=== PATIENT | female | born 1950 | race Caucasian/White ===

== ENCOUNTER 2023-02-13 12:40 | Emergency (ER) | payer OTHER ==
--- OUTSIDE RECORDS SUMMARY | 2023-02-13 12:45 | XMS REPORT | Continuity of Care Document ---
:1950 Author Organization [facility] t Address [address] [place] [address] [place] [id number] Care Team Providers Name Role Phone MARIE COOLEY Attending Clinician Unavailable NIRANJAN MORALES Attending Clinician Unavailable DR EMILY BRASHER Attending Clinician Unavailable DR EMILY BRASHER Admitting Clinician Unavailable Payers Payer Name Policy Type Policy Number Effective Date Expiration Date [facility] MAC [id number] 2022 00:00:00 2022 00:00 :00 Problems This patient has no known problems. Allergies, Adverse Reactions, Alerts This patient has no known allergies or adverse reactions. Medications This patient has no known medications. Procedures This patient has no known procedures. Encounters Start End Encounter Admission Attending Care Care Encounter Source Date/Time Date/Time Type Type Clinicians Facility Department ID 2023-02-[address] [facility] [id number] [place] 16:32:51 [id number] [facility] 2023-02-[address] [facility] [id number] [place] 13:23:43 [id number] [facility] 2023-01-[address] [facility] [id number] [place] 11:45:19 [id number] [facility] 2023-01-[address] [facility] [id number] [place] 08:08:41 [id number] [facility] 2023-01-[address] [facility] [id number] [place] 15:43:36 [id number] [facility] 2023-01-[address] [facility] [id number] [place] 10:53:28 [id number] [facility] 2023-01-[address] [facility] [id number] [place] 14:19:08 [id number] [facility] 2023-01-[address] [facility] [id number] [place] 14:44:43 [id number] [facility] 2022-12-[address] [facility] [id number] [place] 09:29:09 [id number] [facility] 2022-12-[address] [facility] [id number] [place] 14:08:43 [id number] [facility] 2023-02-22 2023-02-22 [facility] [id number] [place] 09:30:00 09:30:00 PAT [facility] MARIE 2023-02-12 2023-02-[address] [facility] [id number] [place] 11:00:00 12:03:04 [facility] 2023-02-08 2023-02-[address] [facility] [id number] [place] 12:00:00 12:00:00 [facility] 2023-01-31 2023-01-31 Outpatient ZUNTA [facility] [id number] [place] 10:00:00 10:53:06 [facility] 2023-01-[address] [facility] [id number] [place] 11:00:00 12:03:56 [facility] 2023-01-22 2023-01-[address] [facility] [id number] [place] 11:00:00 11:57:27 [facility] 2023-01-17 2023-01-17 [address]patient ZUNTA [facility] [id number] [place] 13:30:00 14:27:46 PAT [facility] 2023-01-15 2023-01-[address] [facility] [id number] [place] 11:00:00 12:57:38 [facility] 2023-01-08 2023-01-[address] [facility] [id number] [place] 11:00:00 11:55:21 [facility] 2023-01-01 2023-01-[address] [facility] [id number] [place] 11:00:00 11:57:36 Health 2022-12-22 2022-12-22 Outpatient [facility] [id number] [place] 09:30:00 11:08:56 KIA [facility] NIRANJAN 2017-10-01 2017-10-16 Inpatient U [facility] [id number] [facility] 22:48:00 14:00:00 [facility] Results Test Description Test Time Test Comments Results Result Comments Source BASIC METABOLIC PANEL 2017-10-15 06:18:00 Test Item Value Reference Range Interpretation Comme nts GLUCOSE (test code = 06D) 109 mg/dL 75-100 H SODIUM (test code = 01A) 144 mmol/L 136-145 POTASSIUM (test code = 01B) 4.1 mmol/L 3.6-5.1 CHLORIDE (test code = 04A) 110 mmol/L 98-107 H CO2 (test code = 02A) 29 mmol/L 22-32 ANION GAP (test code = ANG) 9.1 mmol/L BUN (test code = 05D) 13 mg/dL 7-18 CREATININE (test code = 03E) 0.8 mg/dL 0.4-1.1 BUN/CREA (test code = BCR) 16 12-20 CALCIUM (test code = 09D) 8.6 mg/dL 8.3-9.5 [id number] 15:06:00 Test Item Value Reference Range Interpretation Comments COLOR (test code = COLU) YELLOW YELLOW CLARITY (test code = CLA) CLEAR CLEAR GLUCOSE UR (test code = UA GLUCOSE) NEGATIVE NEGATIVE BILI UR (test code = BILE) NEGATIVE NEGATIVE KETONES UR (test code = SANTHOSH) NEGATIVE NEGATIVE SP GRAVITY (test code = SPGR) 1.019 1.005-1.030 PH UR (test code = PH) 5.0 4.5-8.0 PROTEIN UR (test code = PU) NEGATIVE NEGATIVE UROBIL UR (test code = UROQ) 1.0 EU/dL 0.2-1.0 NITRITE UR (test code = NITRITE) NEGATIVE NEGATIVE BLOOD UR (test code = UA BLOOD) NEGATIVE NEGATIVE LEUK ES UR (test code = LEUK) NEGATIVE NEGATIVE T4 [id number] 08:10:00 Test Item Value Reference Range Interpretation Comments T4 FREE (test code = A91) 0.94 ng/dL 0.76-1.46 THYROID PANEL/SCREEN (TSH)2017-10-02 05:01:00 Test Item Value Reference Range Interpretation Comments TSH (test code = A57) 7.350 uIU/mL 0.358-3.740 H B12 [id number] 04:45:00 Test Item Value Reference Range Interpretation Comments VIT B12 (test code = A60) 289.0 pg/mL 180.0-914.0 [id number] 04:45:00 Test Item Value Reference Range Interpretation Comments PREALBUMIN (test code = 08E) 25 mg/dL 18-38 [id number] 04:33:00 Test Item Value Reference Range Interpretation Comments FOLATE (test code = A75) 18.3 ng/mL 3.1-17.5 H LIPID [id number] 04:33:00 Test Item Value Reference Range Interpretation Comments CHOLESTROL (test code = 44A) 254 mg/dL 140-200 H TRIGLYCERI (test code = 42B) 150 mg/dL <=149 H HDL (test code = 83D) 77.0 mg/dL 40.0-60.0 H LDL (test code = 34B) 164 mg/dL <=99 H CHL/HDL (test code = CHR) 3.3 0.0-3.4 [id number] 04:24:00 Test Item Value Reference Range Interpretation Comments Hb A1C % (test code = HBA) 5.9 % 4.2-6.3 [id number] 04:17:00 Test Item Value Reference Range Interpretation Comments MAGNESIUM (test code = 48A) 2.2 mg/dL 1.8-2.4
--- NOTE | 2023-02-13 13:03 | EDPHYS ---
Physician Documentation [facility] Name: Ruby Andersen Age: 72 yrs Sex: Female : 1950 Arrival Date: 02/13/2023 Time: 12:40 Bed 11 Private MD: ED Physician Cholo Brody HPI: 02/13 12:55 This 72 yrs old Female presents to ER via Wheelchair with complaints of Eye Swelling, jh7 blurred vision. 12:55 The patient is experiencing blurred vision, matting or discharge, pain, redness, to the jh7 right eye, caused by an unknown mechanism. Onset: The symptoms/episode began/occurred 1 week(s) ago. Associated signs and symptoms: Pertinent negatives: chills, dizziness, ear ache, fever, headache. 72-year-old female presents for right eye redness, purulent drainage, irritation, and eyelid swelling for the past week. Reports that she has been using [id number] eyedrops with no relief. Denies visual loss but reports blurred vision due to the drainage.. Historical: - Allergies: 12:54 No Known Allergies; iw - PMHx: 12:54 Depressive disorder; iw - PSHx: 12:54 hernia; iw - Social history:: Smoking status: Patient reports the use of cigarette tobacco products, smokes two packs cigarettes per day. ROS: 12:55 Constitutional: Negative for fever, chills, and weight loss, Neck: Negative for injury, jh7 pain, and swelling, Cardiovascular: Negative for chest pain, palpitations, and edema, Respiratory: Negative for shortness of breath, cough, wheezing, and pleuritic chest pain, MS/Extremity: Negative for injury and deformity, Skin: Negative for injury, rash, and discoloration, Neuro: Negative for headache, weakness, numbness, tingling, and seizure. 12:55 Eyes: Positive for blurry vision, discharge, itching, matting, pain, redness, tearing, Negative for vision loss. 12:55 All other systems are negative. Exam: 12:55 Constitutional: This is a well developed, well nourished patient who is awake, alert, jh7 and in no acute distress. Head/Face: Normocephalic, atraumatic. Neck: Trachea midline, no thyromegaly or masses palpated, and no cervical lymphadenopathy. Supple, full range of motion without nuchal rigidity, or vertebral point tenderness. No Meningismus. Cardiovascular: Regular rate and rhythm with a normal S1 and S2. No gallops, murmurs, or rubs. Normal PMI, no JVD. No pulse deficits. Respiratory: Lungs have equal breath sounds bilaterally, clear to auscultation and percussion. No rales, rhonchi or wheezes noted. No increased work of breathing, no retractions or nasal flaring. Back: No spinal tenderness. No costovertebral tenderness. Full range of motion. Skin: Warm, dry with normal turgor. Normal color with no rashes, no lesions, and no evidence of cellulitis. MS/ Extremity: Pulses equal, no cyanosis. Neurovascular intact. Full, normal range of motion. Neuro: Awake and alert, GCS 15, oriented to person, place, time, and situation. Motor strength 5/5 in all extremities. Sensory grossly intact. Normal gait. 12:55 Eyes: Periorbital structures: erythema, that is mild, on the right upper eyelid, swelling, that is mild, on the right lower eyelid, Pupils: equal, round, and reactive to light and accomodation, Extraocular movements: no pain, Conjunctiva: exudate, in the right eye, injected, in the right eye, Corneas: are normal, Sclera: no appreciated abnormality, Anterior chamber: normal, no hyphema, Lids and lashes: appear normal. Vital Signs: 12:52 BP 118 / 83; Pulse 65; Resp 18; Temp 98.3; Pulse Ox 97% on R/A; Weight 131.09 kg; iw Height 5 ft. 7 in. ; Pain 8/10; 12:52 Body Mass Index 45.26 (131.09 kg, 170.18 cm) 12:52 Pain Scale: Adult iw MDM: 12:55 Patient medically screened. [facility] 12:55 Differential diagnosis: Acute iritis of right eye. Allergic conjunctivitis in right 7 eye. Infectious conjunctivitis in right eye. Data reviewed: vital signs, nurses notes. Counseling: I had a detailed discussion with the patient and/or guardian regarding: the historical points, exam findings, and any diagnostic results supporting the discharge/admit diagnosis, to return to the emergency department if symptoms worsen or persist or if there are any questions or concerns that arise at home, optho f/u advised if symptoms persist, or new concerning sx develop. Administered Medications: No medications were administered Disposition Summary: 02/13/23 13:02 Discharge Ordered Location: Home [facility] Problem: new [facility] Symptoms: are unchanged [facility] Condition: Stable [facility] Diagnosis - Other mucopurulent conjunctivitis, right eye [facility] Followup: [facility] - With: Private Physician - When: 2 - 3 days - Reason: Recheck today's complaints Discharge Instructions: - Discharge Summary Sheet [facility] - Bacterial Conjunctivitis, Adult [facility] Forms: - Medication Reconciliation Form [facility] - Thank You Letter [facility] - Antibiotic Education [facility] Prescriptions: - Clindamycin HCl 300 mg Oral Capsule - take 1 capsule by ORAL route every 6 hours for 10 days; 40 capsule; Refills: 0, [facility] Product Selection Permitted - Erythromycin 5 mg/gram (0.5 %) Ophthalmic Ointment - apply 1 centimeter by OPHTHALMIC route 2-3 times daily for 7 days R eye; 1 jh7 Each; Refills: 0, Product Selection Permitted Signatures: Rosalinda Miller, RN RN iw Robyn Mcclendon, SHERIFF DEPUTY SHERIFF DEPUTY [facility]
--- NOTE | 2023-02-13 13:03 | ER ---
Nurse's Notes [facility] Name: Ruby Andersen Age: 72 yrs Sex: Female : 1950 Arrival Date: 02/13/2023 Time: 12:40 Bed 11 Private MD: Diagnosis: Other mucopurulent conjunctivitis, right eye Presentation: 02/13 12:52 Chief complaint: Patient states: right eyelid swelling and pain , shooting, throbbing , iw burning pain X 1 week, she's been using OTC eyedrops. Coronavirus screen: At this time, the client does not indicate any symptoms associated with coronavirus-19. Ebola Screen: Patient negative for fever greater than or equal to 101.5 degrees Fahrenheit, and additional compatible Ebola Virus Disease symptoms Patient denies exposure to infectious person. Patient denies travel to an Ebola-affected area in the 21 days before illness onset. No symptoms or risks identified at this time. Initial Sepsis Screen: Does the patient meet any 2 criteria? No. Patient's initial sepsis screen is negative. Does the patient have a suspected source of infection? No. Patient's initial sepsis screen is negative. Risk Assessment: Do you want to hurt yourself or someone else? Patient reports no desire to harm self or others. Onset of symptoms was February 06, 2023. 12:52 Method Of Arrival: Wheelchair iw 12:52 Acuity: JALEEL 3 iw Historical: - Allergies: 12:54 No Known Allergies; iw - PMHx: 12:54 Depressive disorder; iw - PSHx: 12:54 hernia; iw - Social history:: Smoking status: Patient reports the use of cigarette tobacco products, smokes two packs cigarettes per day. Vital Signs: 12:52 BP 118 / 83; Pulse 65; Resp 18; Temp 98.3; Pulse Ox 97% on R/A; Weight 131.09 kg; iw Height 5 ft. 7 in. ; Pain 8/10; 12:52 Body Mass Index 45.26 (131.09 kg, 170.18 cm) iw 12:52 Pain Scale: Adult iw ED Course: 12:47 Patient arrived in ED. kj1 12:54 Triage completed. iw 12:55 Robyn Mcclendon FNP is [facility] 7 12:55 Cholo Brody MD is Attending Physician. [facility] 12:55 Arm band placed on. iw 13:02 Tania Ramirez, RN is Primary Nurse. 3 Administered Medications: No medications were administered Outcome: 13:02 Discharge ordered by . [facility] 13:24 Patient left the ED. 3 Signatures: Rosalinda Miller, RN RN iw Gregory Rodríguezdis kj1 Tania Ramirez, LISA RN 3 Robyn Mcclendon, PROFESSOR OF FLORICULTURE [place] [id number] Corrections: (The following items were deleted from the chart) 12:55 12:52 Pulse 65bpm; Resp 18bpm; Pulse Ox 97% RA; Temp 98.3F; 131.09 kg; Height 5 ft. 7 iw in.; BMI: 45.2; Pain 8/10, Adult; iw
[2023-02-13 13:30] VITALS: BP 118/83; TEMP 98.3; O2SAT 97
== END 2023-02-13 13:24 | disposition home or self-care (01) ==
LOC: ER 12:40
DX: H10.021 Other mucopurulent conjunctivitis, right eye (principal); F17.210 Nicotine dependence, cigarettes, uncomplicated

== ENCOUNTER 2023-03-02 17:16 | Emergency (ER) | payer OTHER ==
--- OUTSIDE RECORDS SUMMARY | 2023-03-02 17:38 | XMS REPORT | Continuity of Care Document ---
:1950 Author Organization [facility] t Address [address] [place] [address] [place] [address] Care Team Providers Name Role Phone MARIE COOLEY Attending Clinician Unavailable NIRANJAN MORALES Attending Clinician Unavailable SAMEERA, DR DIAZ Attending Clinician Unavailable SAMEERA, DR DIAZ Admitting Clinician Unavailable Payers Payer Name Policy Type Policy Number Effective Date Expiration Date [facility] MAC [id number] 2022 00:00:00 2022 00:00 :00 Problems This patient has no known problems. Allergies, Adverse Reactions, Alerts This patient has no known allergies or adverse reactions. Medications This patient has no known medications. Procedures This patient has no known procedures. Encounters Start End Encounter Admission Attending Care Care Encounter Source Date/Time Date/Time Type Type Clinicians Facility Department ID 2023-02-23 Outpatient [facility] [id number] [place] 15:28:20 [id number] [facility] 2023-02-21 Outpatient [facility] [id number] [place] 09:57:14 [id number] [facility] 2023-02-09 Outpatient [facility] [id number] [place] 16:32:51 [id number] [facility] 2023-02-08 Outpatient [facility] [id number] [place] 13:23:43 [id number] [facility] 2023-01-25 Outpatient [facility] [id number] [place] 11:45:19 [id number] [facility] 2023-01-19 Outpatient [facility] [id number] [place] 08:08:41 [id number] [facility] 2023-01-15 Outpatient [facility] [id number] [place] 15:43:36 [id number] [facility] 2023-01-11 Outpatient [facility] [id number] [place] 10:53:28 [id number] [facility] 2023-01-10 Outpatient [facility] [place] [id number] [place] 14:19:08 [id number] [facility] 2023-01-04 Outpatient [facility] [id number] [place] 14:44:43 [id number] [facility] 2022-12-22 Outpatient [facility] [id number] [place] 09:29:09 [id number] [facility] 2022-12-12 Outpatient [facility] [place] [id number] [place] 14:08:43 [id number] [facility] 2023-03-05 2023-03-05 Outpatient [facility] UT [id number] [place] 11:00:00 11:00:00 [facility] 2023-03-01 2023-03-01 [place] [facility] [facility] [place] [id number] [place] 09:30:00 [facility]:18:[facility] 2023-[facility] 2023-02-27 Out[facility] UT [id number] [place] 11:00:00 11:53:51 [facility] 2023-02-22 2023-02-22 Outpatient [facility] UT [id number] [place] 12:00:00 12:14:22 [facility] 2023-02-22 2023-02-22 Outpatient Z[facility]TA [facility] [id number] [place] 09:30:00 09:30:[facility] 2023-02-12 2023-02-12 Outpatient [facility] UT [id number] [place] 11:00:00 12:03:04 [facility] 2023-02-08 2023-02-08 Outpatient [facility] UT [id number] [place] 12:00:00 12:00:00 [facility] 2023-01-31 2023-01-31 Outpatient [facility] [place] [id number] [place] 10:00:00 [facility]53:[facility] 2023-01-29 Out[facility] [id number] [place] 11:00:00 12:03:56 [facility] 2023-01-22 2023-01-22 Outpatient [facility] UT [id number] [place] 11:00:00 11:57:27 [facility] 2023-01-17 2023-01-17 Outpatient Z[facility] [id number] [place] 13:30:00 14:27:46 [facility] 2023-01-15 2023-01-15 Outpatient [facility] [id number] [place] 11:00:00 12:57:38 Health 2023-01-08 2023-01-08 Outpatient [facility] [id number] [place] 11:00:00 11:55:21 Health 2023-01-01 2023-01-01 Outpatient [facility] [id number] [place] 11:00:00 11:57:36 [facility] 2022-12-22 2022-12-22 Outpatient [facility] [id number] [place] 09:30:00 11:08:56 [facility]10[facility]01 2017-10-16 [facility] [id number] [place] 22[facility]48:00 14:00:00 [facility] Results Test Description Test Time Test Comments [...] (test code = 09D) 8.6 mg/dL 8.3-9.5 [id number] 15:06:00 Test Item Value Reference Range Interpretation [...] (test code = LEUK) NEGATIVE NEGATIVE T4 [id number] 08:10:00 Test Item Value Reference Range Interpretation Comments T4 FREE (test code = A91) 0.94 ng/dL 0.76-1.46 THYROID PANEL/SCREEN (TSH)2017-10-02 05:01:00 Test Item Value Reference Range Interpretation Comments TSH (test code = A57) 7.350 uIU/mL 0.358-3.740 H B12 [id number] 04:45:00 Test Item Value Reference Range Interpretation Comments VIT B12 (test code = A60) 289.0 pg/mL 180.0-914.0 [id number] 04:45:00 Test Item Value Reference Range Interpretation Comments PREALBUMIN (test code = 08E) 25 mg/dL 18-38 LIPID [id number] 04:33:00 Test Item Value Reference Range Interpretation Comments CHOLESTROL (test code = 44A) 254 mg/dL 140-200 H TRIGLYCERI (test code = 42B) 150 mg/dL <=149 H HDL (test code = 83D) 77.0 mg/dL 40.0-60.0 H LDL (test code = 34B) 164 mg/dL <=99 H CHL/HDL (test code = CHR) 3.3 0.0-3.4 [id number] 04:33:00 Test Item Value Reference Range Interpretation Comments FOLATE (test code = A75) 18.3 ng/mL 3.1-17.5 H [id number] 04:24:00 Test Item Value Reference Range Interpretation Comments Hb A1C % (test code = HBA) 5.9 % 4.2-6.3 [id number] 04:17:00 Test Item Value Reference Range Interpretation Comments MAGNESIUM (test code = 48A) 2.2 mg/dL 1.8-2.4
[2023-03-02 18:21] LABS: Absolute Lymphocytes (CBC) 3.6 K/uL (0.7-4.9); Lymphocytes % 28.9 % (15.3-44.8); MCV 85.9 fL (80-100); MPV 9.7 fL (7.6-11.3); RBC Red Blood Cell Count 4.89 M/uL (3.86-4.86)
[2023-03-02 18:23] LABS: Protime INR 1.21
[2023-03-02 18:37] LABS: ALT/SGPT 25 U/L (13-56); AST/SGOT 19 U/L (15-37); Albumin 3.8 g/dL (3.4-5.0); Alkaline Phosphatase 71 U/L (45-117); BUN Blood Urea Nitrogen 10 mg/dL (7-18); Bicarbonate 21 mEq/L (21-32); Bilirubin Direct 0.1 mg/dL (0-0.2); Bilirubin Indirect, Calculated 0.4 mg/dL (0.2-0.8); Bilirubin Total 0.5 mg/dL (0.2-1.0); Glomerular Filtration Rate 55 ml/min (=/>90); Glucose Level 96 mg/dL (74-106); Potassium 3.4 mEq/L (3.5-5.1); Protein, Total 7.5 g/dL (6.4-8.2); Sodium Level 135 mEq/L (136-145)
[2023-03-02 19:27] LABS: Specific Gravity 1.005 (1.005-1.030); Urine Bilirubin NEGATIVE (Negative); Urine Blood Negative (Negative); Urine Clarity Clear (Clear); Urine Color Colorless (Yellow); Urine Glucose NEGATIVE (Negative); Urine Protein NEGATIVE (Negative); Urine Urobilinogen Normal (Normal); Urine pH 5.5 (5.0-7.0)
[2023-03-02 19:31] LABS: Barbiturates NEGATIVE (NEGATIVE); Benzodiazepines NEGATIVE (NEGATIVE); Cocaine NEGATIVE (NEGATIVE); METHAMPHETAM NEGATIVE (NEGATIVE); Methadone NEGATIVE (NEGATIVE); Opiates NEGATIVE (NEGATIVE); Phencyclidine NEGATIVE (NEGATIVE); THC Cannibis POSITIVE (NEGATIVE)
--- NOTE | 2023-03-02 19:40 | ER ---
Nurse's Notes [facility] Name: Ruby Andersen Age: 72 yrs Sex: Female : 1950 Arrival Date: 03/02/2023 Time: 17:16 Bed 17 Private MD: Diagnosis: Suicidal ideations;Other conjunctivitis Presentation: 03/02 17:30 Chief complaint: EMS states: Patient with right eye pain and depression. States started db drinking today around 0900 Diet Coke and rum. patient has superficial left forearm cuts from scissors. Patient states cut herself because of the pain and scared she could lose her eye. Pt states she posted a post on [employer] that said "I am going to drink until the pain goes away or I ". Someone saw the post and called 911. Mental health states will be on their way. They are coming from [place]. Coronavirus screen: Vaccine status: At this time, unable to obtain information related to travel outside the [place] At this time, the client does not indicate any symptoms associated with coronavirus-19. Ebola Screen: Patient negative for fever greater than or equal to 101.5 degrees Fahrenheit, and additional compatible Ebola Virus Disease symptoms Patient denies exposure to infectious person. Patient denies travel to an Ebola-affected area in the 21 days before illness onset. No symptoms or risks identified at this time. Initial Sepsis Screen: Does the patient meet any 2 criteria? No. Patient's initial sepsis screen is negative. Does the patient have a suspected source of infection? No. Patient's initial sepsis screen is negative. Risk Assessment: Do you want to hurt yourself or someone else? Patient reports desire/thoughts of hurting themselves or someone else. Provider notified. Onset of symptoms was March 02, 2023. 17:30 Method Of Arrival: EMS: [facility] db 17:30 Acuity: JALEEL 2 db Triage Assessment: 17:43 General: Appears in no apparent distress. Behavior is cooperative, anxious, Smells of db alcohol. Pain: Complains of pain in right eye and left arm. Neuro: Level of Consciousness is awake, alert, obeys commands, Oriented to person, place, time, situation, Speech is slurred. Historical: - Home Meds: 17:43 Risperdal Oral [Active]; Trazodone Oral [Active]; Hydroxyzine Oral [Active]; Prozac db Oral [Active]; - PMHx: 17:43 depressive disorder; Anxiety; db - PSHx: 17:43 hernia; db - Immunization history:: Adult Immunizations unknown. - Social history:: Smoking status: Patient reports the use of cigarette tobacco products, smokes one pack cigarettes per day. Patient uses alcohol. Screenin:13 [facility] ED Fall Risk Assessment (Adult) History of falling in the last 3 months, db including since admission No falls in past 3 months (0 pts) Confusion or Disorientation No (0 pts) Intoxicated or Sedated Yes (3 pts) Impaired Gait No (0 pts) Mobility Assist Device Used No (0 pt) Altered Elimination No (0 pt) Score/Fall Risk Level 3 or more points = High Risk Oriented to surroundings, Maintained a safe environment. Abuse screen: Denies threats or abuse. Denies injuries from another. Nutritional screening: No deficits noted. Tuberculosis screening: No symptoms or risk factors identified. Assessment: 17:47 Reassessment: Patient appears in no apparent distress at this time. Patient and/or db family updated on plan of care and expected duration. Pain level reassessed. Patient is alert, oriented x 3, equal unlabored respirations, skin warm/dry/pink. General: Appears in no apparent distress. comfortable, Behavior is calm, cooperative. 18:32 Reassessment: Patient appears in no apparent distress at this time. Patient and/or db family updated on plan of care and expected duration. Pain level reassessed. Patient is alert, oriented x 3, equal unlabored respirations, skin warm/dry/pink. Neuro: No deficits noted. Level of Consciousness is awake, alert, obeys commands, Oriented to person, place, time, situation. Respiratory: Airway is patent Respiratory effort is even, unlabored, Respiratory pattern is regular, symmetrical. 19:20 General: Appears comfortable, Behavior is calm, cooperative. Pain: Complains of pain in ha1 right eye Pain does not radiate. Pain currently is 5 out of 10 on a pain scale. Neuro: Level of Consciousness is awake, alert, obeys commands, Oriented to person, place, time, situation. Cardiovascular: Patient's skin is warm and dry. Respiratory: Airway is patent Respiratory effort is even, unlabored, Respiratory pattern is regular, symmetrical. 20:20 Reassessment: Patient and/or family updated on plan of care and expected duration. Pain ha1 level reassessed. Patient is alert, oriented x 3, equal unlabored respirations, skin warm/dry/pink. 21:20 Reassessment:. General: Appears comfortable, Behavior is calm, cooperative. ha1 23:00 Reassessment: Patient and/or family updated on plan of care and expected duration. Pain ha1 level reassessed. reports anxiety. Notified care provider. 23:03 Reassessment: [facility] in the room. ha1 03/03 01:00 Reassessment: Patient and/or family updated on plan of care and expected duration. Pain ha1 level reassessed. Patient is alert, oriented x 3, equal unlabored respirations, skin warm/dry/pink. 02:49 Reassessment: Patient and/or family updated on plan of care and expected duration. Pain ha1 level reassessed. Patient is alert, oriented x 3, equal unlabored respirations, skin warm/dry/pink. Psych: 03/02 17:30 [place] Suicide Severity Screening: In the past month, have you wished you were db or wished you could go to sleep and not wake up? Patient responds "yes." "In the past month, have you actually had any thoughts of killing yourself?" Patient responds "no." "In your lifetime, have you ever done anything, started to do anything, or prepared to do anything to end your life?" Patient responds "yes." Patient reports suicidal intent occurred greater than 3 months prior. Subjective: Patient's mood is hopeless, Delusions are denied, Hallucinations are denied Having thoughts of. Subjective: Having thoughts of suicide. Plan for suicide is plan to drink alcohol till "the pain goes away or I ". Objective: Patient is. Interventions: Searched person for dangerous items. Patient reassessed during use of restraints. Patient is physically safe. Patient's cardiac status is stable. Patient's respirations are even and unlabored. Patient has good circulation in all extremities as indicated by capillary refill < 3 seconds. Patient's ROM assessed and is intact. Safety Checks: Personal items have been removed. Door is open. No visitors are present at this time. Patient uses several glasses since 0900. Commitment: Patient will be a voluntary commitment. 18:32 Interventions: Removed personal items and placed in bag. Patient placed in hospital db gown. Vital Signs: 17:30 BP 132 / 78; Pulse 78; Resp 18; Temp 98.4(O); Pulse Ox 98% ; Weight 131.09 kg; Height 5 db ft. 7 in. ; 18:00 BP 133 / 88; Pulse 64; Resp 16 S; Pulse Ox 97% ; db 19:50 BP 139 / 89; Pulse 68; Resp 19 S; Pulse Ox 98% on R/A; ha1 20:23 Pulse 68; Resp 19; Pulse Ox 97% on R/A; ha1 22:30 BP 135 / 85; Pulse 61; Resp 19 S; Pulse Ox 96% on R/A; ha1 17:30 Body Mass Index 45.26 (131.09 kg, 170.18 cm) db Vitals: 18:00 Cardiac Rhythm Assessment Regular Sinus rhythm. db ED Course: 17:30 Patient has correct armband on for positive identification. Placed in gown. Bed in low db position. Call light in reach. Side rails up X2. Suicide precautions. Client placed on continuous cardiac and pulse oximetry monitoring. NIBP monitoring applied. Warm blanket given. 17:33 Patient arrived in ED. eb 17:34 Trip Weir PA is PHCP. cp 17:34 Nitin Guerrier DO is Attending Physician. cp 17:39 Ally Lambert, RN is Primary Nurse. db 17:43 Triage completed. db 17:45 Inserted saline lock: 20 gauge in right antecubital area, using aseptic technique. db Blood collected. 17:46 Arm band placed on Patient placed in an exam room. db 18:06 EKG done, by ED staff. aw1 18:22 No provider procedures requiring assistance completed. db 18:38 No apparent distress. Resting quietly. db 20:[address] [facility] for pt evaluation. rv1 20:57 Primary Nurse role handed off by Ally Lambert, RN rv1 22:10 Angelique Cornejo, LISA is Primary Nurse. ha1 23:03 [facility] at bedside. rv1 23:20 [facility] recommends Inpatient care. rv1 23:24 Pt clinicals sent to the following facilities for placement; [facility], [facility], [facility], [facility], [facility], [facility], [facility], [facility], [facility], [facility]. 03/03 00:21 Nurse to Nurse with Lin Soliz. rv1 00:45 Pt accepted to [facility] by Dr. Kam. rv1 02:51 IV discontinued, intact, bleeding controlled, No redness/swelling at site. Pressure ha1 dressing applied. Administered Medications: 03/02 20:00 Drug: Potassium PO Effervescent Tablet 50 mEq Route: PO; ha1 20:00 Drug: Gentamicin Ophthalmic Drops 0.3 % 1 drops Route: Ophthalmic; Site: right eye; ha1 23:52 Drug: Ativan IVP 0.5 mg Route: IVP; Site: right antecubital; ha1 03/03 00:15 Follow up: Response: No adverse reaction; Anxiety decreased; RASS: Alert and Calm (0) ha1 Medication: 02:51 VIS not applicable for this client. ha1 Outcome: 03/02 19:40 ER care complete, transfer ordered by MD. west 03/03 02:49 Transferred by ground EMS Note: transferred by [facility] ha1 Condition: stable Discharge instructions given to patient, Instructed on the need for transfer, Demonstrated understanding of instructions. 02:51 Patient left the ED. ha1 Signatures: Trip Weir PA PA cp Botello, Elizabeth eb Ayala, Heidy RN RN ha1 Ally Lambert RN RN db Villegas, Rebecca rv1 Meredith Zhu aw1 Corrections: (The following items were deleted from the chart) 03/02 18:32 17:30 [place] Suicide Severity Screening: In the past month, have you wished you were db or wished you could go to sleep and not wake up? Patient responds "yes." "In the past month, have you actually had any thoughts of killing yourself?" Patient responds "no." "In your lifetime, have you ever done anything, started to do anything, or prepared to do anything to end your life?" Patient responds "yes." Patient reports suicidal intent occurred greater than 3 months prior. db
--- NOTE | 2023-03-02 19:40 | EDPHYS ---
Physician Documentation [facility] Name: Ruby Andersen Age: 72 yrs Sex: Female : 1950 Arrival Date: 03/02/2023 Time: 17:16 Bed 17 Private MD: ED Physician Nitin Guerrier HPI: 03/02 17:45 This 72 yrs old Female presents to ER via EMS with complaints of Suicidal Ideation, cp ETOH Abuse. 17:45 The patient presents to the emergency department with depression, suicide ideation, and cp the patient has a plan, to cut oneself and bleed, alcohol poisoning. Onset: The symptoms/episode began/occurred today. Past psychiatric history: Prior diagnosis: depression. Associated signs and symptoms: Pertinent negatives: abdominal pain, chest pain, delusions, fever, hallucinations, homicidal ideation, paranoia, vomiting. Severity of symptoms: in the emergency department the symptoms are unchanged despite EMS interventions. Historical: - Home Meds: 17:43 Risperdal Oral [Active]; Trazodone Oral [Active]; Hydroxyzine Oral [Active]; Prozac db Oral [Active]; - PMHx: 17:43 depressive disorder; Anxiety; db - PSHx: 17:43 hernia; db - Immunization history:: Adult Immunizations unknown. - Social history:: Smoking status: Patient reports the use of cigarette tobacco products, smokes one pack cigarettes per day. Patient uses alcohol. ROS: 17:50 Constitutional: Negative for body aches, chills, fever, poor PO intake. cp 17:50 Eyes: Positive for discharge, redness, of the right eye. cp 17:50 ENT: Negative for drainage from ear(s), ear pain, sore throat, difficulty swallowing, difficulty handling secretions. 17:50 Cardiovascular: Negative for chest pain, edema, palpitations. 17:50 Respiratory: Negative for cough, shortness of breath, wheezing. 17:50 Abdomen/GI: Negative for abdominal pain, nausea, vomiting, and diarrhea. 17:50 Neuro: Negative for altered mental status, dizziness, headache, weakness. 17:50 Psych: Positive for suicidal ideation. 17:50 All other systems are negative. Exam: 17:50 Constitutional: The patient appears in no acute distress, alert, awake, cp non-diaphoretic, non-toxic, well developed, well nourished, anxious. 17:50 Head/Face: Normocephalic, atraumatic. 17:50 Eyes: Periorbital structures: appear normal, Conjunctiva: mild injection of right eye. Sclera: no appreciated abnormality, Lids and lashes: drainage, from the right eye. 17:50 ENT: External ear(s): are unremarkable, Nose: is normal, Mouth: Lips: moist, Oral mucosa: pink and intact, moist, Posterior pharynx: is normal, airway is patent, no erythema, no exudate. 17:50 Chest/axilla: Inspection: normal. 17:50 Cardiovascular: Rate: normal, Rhythm: regular. 17:50 Respiratory: the patient does not display signs of respiratory distress, Respirations: normal, no use of accessory muscles, no retractions, labored breathing, is not present, Breath sounds: are clear throughout, no decreased breath sounds, no stridor, no wheezing. 17:50 Abdomen/GI: Inspection: abdomen appears normal, Palpation: abdomen is soft and non-tender, in all quadrants. 17:50 Neuro: Orientation: to person, place \T\ time. Mentation: is normal, Motor: moves all fours, strength is normal, Sensation: is normal. 18:08 ECG was reviewed by the Attending Physician. Vital Signs: 17:30 BP 132 / 78; Pulse 78; Resp 18; Temp 98.4(O); Pulse Ox 98% ; Weight 131.09 kg; Height 5 db ft. 7 in. ; 18:00 BP 133 / 88; Pulse 64; Resp 16 S; Pulse Ox 97% ; db 19:50 BP 139 / 89; Pulse 68; Resp 19 S; Pulse Ox 98% on R/A; ha1 20:23 Pulse 68; Resp 19; Pulse Ox 97% on R/A; ha1 22:30 BP 135 / 85; Pulse 61; Resp 19 S; Pulse Ox 96% on R/A; ha1 17:30 Body Mass Index 45.26 (131.09 kg, 170.18 cm) db MDM: 17:36 Patient medically screened. 19:45 Data reviewed: vital signs, nurses notes, lab test result(s), EKG. 19:45 I considered the following discharge prescriptions or medication management in the emergency department Medications were administered in the Emergency Department. See MAR. 03/02 17:41 Order name: Acetaminophen; Complete Time: 19:03 03/02 17:41 Order name: Basic Metabolic Panel; Complete Time: 19:03 03/02 19:03 Interpretation: Normal except: NA 135; K 3.4; CRE 1.07; GFR 55; CA 8.3. 03/02 17:41 Order name: CBC with Diff; Complete Time: 19:03 03/02 19:04 Interpretation: Normal except: WBC 12.30; RBC 4.89. 03/02 17:41 Order name: ETOH Level; Complete Time: 19:03 03/02 19:05 Interpretation: ETOH 72; Reviewed. 03/02 17:41 Order name: Hepatic Function; Complete Time: 19:03 03/02 17:41 Order name: PT-INR; Complete Time: 19:03 03/02 17:41 Order name: Ptt, Activated; Complete Time: 19:03 03/02 17:41 Order name: Salicylate; Complete Time: 19:03 03/02 17:41 Order name: Urinalysis w/ reflexes; Complete Time: 19:35 03/02 17:41 Order name: Urine Drug Screen; Complete Time: 19:35 03/02 19:35 Interpretation: Reviewed. 03/03 00:42 Order name: SARS RAPID ds4 03/02 17:41 Order name: EKG; Complete Time: 17:42 03/02 19:07 Order name: Diet Finger Food; Complete Time: 19:08 mm9 03/02 17:41 Order name: EKG - Nurse/Tech; Complete Time: 18:06 03/02 17:41 Order name: IV Saline Lock; Complete Time: 18:19 cp 03/02 17:41 Order name: Labs collected and sent; Complete Time: 18:19 03/02 17:41 Order name: Suicide Precautions; Complete Time: 18:19 03/02 17:41 Order name: Suicide Screening ([place]); Complete Time: 18:19 cp EC:08 Rate is 64 beats/min. Rhythm is regular. LA interval is normal. QRS interval is normal. cp QT interval is normal. Interpreted by me. Reviewed by me. Administered Medications: 20:00 Drug: Potassium PO Effervescent Tablet 50 mEq Route: PO; ha1 20:00 Drug: Gentamicin Ophthalmic Drops 0.3 % 1 drops Route: Ophthalmic; Site: right eye; ha1 23:52 Drug: Ativan IVP 0.5 mg Route: IVP; Site: right antecubital; ha1 03/03 00:15 Follow up: Response: No adverse reaction; Anxiety decreased; RASS: Alert and Calm (0) ha1 Disposition Summary: 03/02/23 19:40 Transfer Ordered Transfer Location: [facility] Facility cp Reason: Higher level of care cp Condition: Stable cp Problem: new cp Symptoms: have improved cp Accepting Physician: DR Kam(03/03/23 02:51) ha1 Diagnosis - Suicidal ideations cp - Other conjunctivitis cp Forms: - Medication Reconciliation Form cp - SBAR form cp Addendum: 03/05/2023 12:58 Co-signature as Attending Physician, Nitin Guerrier DO I was immediately available on-site m s3 in the Emergency Department for consultation in the care of the patient . Signatures: Dispatcher [employer] EDMS Trip Weir PA PA cp Sims, Marcus, DO DO ms3 Angelique Cornejo RN RN ha1 Ally Lambert RN RN db Corrections: (The following items were deleted from the chart) 03/03 02:28 03/02 19:40 Doctor brett 03/03 02:51 02:28 DR Kam ha1
[2023-03-02] MEDS ORDERED: GENTAMICIN 0.3% OPTH DROP 5ML ONE (19:57)
[2023-03-02] MEDS ORDERED: POTASSIUM 25 MEQ EFFERV TAB ONE (19:58)
[2023-03-02] MEDS ORDERED: LORazepam 2 MG/ML VIAL ONE (23:56)
[2023-03-03 01:07] LABS: SARS-CoV-2 Antigen Rapid Res Negative (Negative)
[2023-03-03 03:10] VITALS: TEMP 98.4
[2023-03-03 03:16] VITALS: BP 133/88; O2SAT 97
--- NOTE | 2023-03-05 12:10 | EKG ---
Test Date: 2023-03-02 Test Time: 18:02:42 Pipe Foreman: LARY MEASUREMENT RESULTS: Intervals: Rate: 64 MI: 148 QRSD: 92 QT: 460 QTc: 474 [place]: P: 46 MI: 148 QRS: -22 T: 53 INTERPRETIVE STATEMENTS: Normal sinus rhythm Low voltage QRS Borderline ECG Compared to ECG 05/03/2011 09:52:44 Low QRS voltage now present Electronically Signed On 03-05-23 12:01:25 CDT by Maury Ortiz
== END 2023-03-03 02:51 ==
LOC: ER 17:16
DX: R45.851 Suicidal ideations (principal); H10.89 Other conjunctivitis; F17.210 Nicotine dependence, cigarettes, uncomplicated; Z20.822 Contact with and (suspected) exposure to COVID-19
CPT/HCPCS: 36415; 80048; 80076; 80143; 80179; 80307; 81003; 82077; 85025; 85610; 85730; 87811; 93005; 96374; 99285